=== PATIENT | female | born 1950 | race Caucasian/White ===

== ENCOUNTER 2019-08-06 16:26 | Emergency (ER) | payer MEDICARE ==
[~2019-08-06] VITALS: Ht 165.1 cm; Wt 80.0 kg
[~2019-08-06 16:26] MED LIST: ALBU1.257 NEB; AZAT50TA PO; BUSP15TA8 PO; EFF25T PO; LOSA1TAB41 PO; MONT10TA21 PO; OMEP20TA5 PO
[2019-08-06 17:42] LABS: BASOPHILS % (AUTO) 0.2 % (0-1); EOSINOPHILS # (AUTO) 0.1 X10'3 (0-0.9); EOSINOPHILS % (AUTO) 0.8 % (0-6); HEMOGLOBIN 13.4 g/dl (12.0-16.0); LYMPHOCYTES # (AUTO) 0.5 X10'3 (1.1-4.8); MEAN CORPUSCULAR HEMOGLOBIN 32.6 PG (27.0-31.0); MEAN CORPUSCULAR HGB CONC 34.3 g/dL (33.0-36.5); MEAN CORPUSCULAR VOLUME 94.8 FL (78-98); MEAN PLATELET VOLUME 7.8 FL (7.4-10.4); MONOCYTES # (AUTO) 0.8 X10'3 (0-0.9); NEUTROPHILS # (AUTO) 10.5 X10'3 (1.8-7.7); PLATELET COUNT 232 X10'3 (140-440); RED BLOOD COUNT 4.11 X10'6 (4.20-5.60); RED CELL DISTRIBUTION WIDTH 15.1 % (11.5-14.5); WHITE BLOOD COUNT 11.9 X10'3 (4.5-11.0)
[2019-08-06] MEDS ORDERED: iohexol 300mg/ml 100ml inj. ONE (17:50)
[2019-08-06 17:59] LABS: ALANINE AMINOTRANSFERASE 27 U/L (12-78); ALBUMIN/GLOBULIN RATIO 1.1 (1.1-1.5); ALKALINE PHOSPHATASE 88 IU/L (46-116); ANION GAP 5 (8-16); ASPARTATE AMINO TRANSFERASE 21 U/L (10-37); BILIRUBIN,TOTAL 0.8 MG/DL (0.1-1.0); BLOOD UREA NITROGEN 27 MG/DL (7-18); BUN/CREATININE RATIO 25.7 (6.6-38.0); CALCIUM 9.8 MG/DL (8.5-10.1); CHLORIDE 104 MMOL/L (99-107); CREATININE 1.05 MG/DL (0.40-0.90); GLUCOSE 97 MG/DL (70-104); POTASSIUM 3.9 MMOL/L (3.5-5.1); SODIUM 142 MMOL/L (135-145); TOTAL CARBON DIOXIDE 32.9 MMOL/L (24-32); TOTAL PROTEIN 7.7 G/DL (6.4-8.2); eGFR 52 ML/MIN
[2019-08-06 19:15] VITALS: BP 151/96
[2019-08-06] MEDS ORDERED: methylPREDNISolone sod succ 125mg/2ml vial IV ONE (19:25)
[2019-08-06] MEDS ORDERED: normal saline 1000ml 1,000 ML IV SCH (19:45)
--- NOTE | 2019-08-06 19:54 | NUR ---
PER PT, SHE REQUESTED THAT WE NOTIFY HER MR. SABRINA JACOBS AT PHONE NUMBER [phone] THAT SHE WILL BE TRANSFERING TO [facility]. HE HAS NO OTHER QUESTIONS. HE STATES HE WILL SEE HER TOMORROW AT 2PM. Addendum: 08/06/19 at 1954 by DYLAN LAST NOTE WRITTEN BY BOONE GODFREY RN
--- NOTE | 2019-08-06 20:02 | NUR ---
CALLED [facility] AT 2002. NO ETA OF YET
--- NOTE | 2019-08-06 20:08 | NUR ---
CALLED [facility] AND SPOKE WITH CHERYL DALE TO GIVE REPORT. THEY'RE READY TO RECEIVE HER FOR SPECIALIZED ENT SERVICES. AWAITING ETA OF [facility]. THEY HAVE BEEN NOTIFIED.
--- NOTE | 2019-08-06 20:40 | NUR ---
CALLED [facility] 3RD TIME FOR ETA AT 2038. NO ETA
--- NOTE | 2019-08-06 21:49 | NUR ---
AFTER CALLING [facility] 4TH TIME WITH NO ETA DR. BUSTAMANTE UPGRADED TO CODE 3 TRANSFER TO [facility]. CALL MADE AT [phone]
== END 2019-08-06 22:03 | disposition short-term general hospital (02) ==
LOC: ER 16:27
DX: R22.1 Localized swelling, mass and lump, neck (principal); E78.00 Pure hypercholesterolemia, unspecified; I10 Essential (primary) hypertension; J45.909 Unspecified asthma, uncomplicated; K21.9 Gastro-esophageal reflux disease without esophagitis; F17.200 Nicotine dependence, unspecified, uncomplicated; Z90.710 Acquired absence of both cervix and uterus; Z98.890 Other specified postprocedural states; Z91.018 Allergy to other foods; Z88.1 Allergy status to other antibiotic agents; Z79.899 Other long term (current) drug therapy
CPT/HCPCS: 36415; 70491; 71045; 80053; 85025; 96374; 99285; J2930; J7030; Q9967